=== PATIENT | male | born 1950 | race Caucasian/White ===

== ENCOUNTER 2017-12-28 14:08 | Emergency (ER) | payer MEDICARE, OTHER ==
[~2017-12-28] VITALS: Ht 188 cm; Wt 101.6 kg
[~2017-12-28 14:08] MED LIST: CIPRO500 MG PO; FLAGYL500 MG PO; FLOMAX0.4 MG PO; HYDROCHLOROTHIA25 M2 PO; PROTONIX 20 MG20 M1 PO
[2017-12-28] MEDS ORDERED: COZAAR 25 MG TA25 M1 PO (14:21)
[2017-12-28] MEDS ORDERED: ERYTHROMYCIN E3.5 G3 OPHTHALMIC (14:39)
[2017-12-28 14:43] VITALS: BP 160/82
== END 2017-12-28 14:44 | disposition home or self-care (01) ==
LOC: M.ERS 14:08
DX: H01.005 Unspecified blepharitis left lower eyelid (principal); I10 Essential (primary) hypertension; N40.0 Benign prostatic hyperplasia without lower urinary tract symptoms

== ENCOUNTER 2018-03-05 15:39 | Inpatient (IN) | payer MEDICARE, OTHER ==
[~2018-03-05] VITALS: Ht 188 cm; Wt 101.6 kg
[~2018-03-05 15:39] MED LIST changes: +COZAAR 25 MG TA25 M1 PO; +ERYTHROMYCIN E3.5 G3 OPHTHALMIC
[2018-03-05 15:49] VITALS: BP 135/85
[2018-03-05] MEDS ORDERED: HYZAAR 100-12.1 EACH PO (15:57)
[2018-03-05 16:13] LABS: ABSOLUTE LYMPHOCYTES 0.9 thou/uL (0.8-5.3); ABSOLUTE MONOCYTES 0.6 thou/uL (0.0-1.2); ABSOLUTE NEUTROPHILS 3.2 thou/uL (1.6-8.1); BASOPHILS 0.7 %; EOSINOPHILS 0.2 %; HEMATOCRIT 46.3 % (42.0-52.0); HEMOGLOBIN 16.4 gm/dL (14.0-18.0); LYMPHOCYTES 19.2 %; MCH 29.7 pg (26.0-34.0); MCHC 35.3 g/dL (28.0-37.0); MCV 84.2 fL (80.0-100.0); MONOCYTES 13.2 %; MPV 7.2 fl. (7.2-11.1); NUCLEATED RBCS 0 /100WBC; PLATELET COUNT* 123 thou/uL (150-400); POLYS 66.7 %; WBC 4.8 thou/uL (4.0-11.0)
[2018-03-05 16:23] LABS: ANION GAP 7 mmol/L (7-16); BUN 23 mg/dL (7-18); CALCIUM 9.4 mg/dL (8.5-10.1); CHLORIDE 100 mmol/L (98-107); CO2 29 mmol/L (21-32); CREATININE 1.2 mg/dL (0.6-1.3); GLUCOSE 114 mg/dL (70-99); POTASSIUM 4.1 mmol/L (3.5-5.1); SODIUM 136 mmol/L (136-145)
[2018-03-05 16:34] LABS: ALBUMIN 3.6 g/dL (3.4-5.0); ALKALINE PHOSPHATASE 111 U/L (46-116); NT-PRO BRAIN NAT PEPTIDE 238 pg/mL (<300); SGOT 45 U/L (15-37); SGPT 49 U/L (30-65); TOTAL BILIRUBIN 1.4 mg/dL (<0.1-1.0); TOTAL PROTEIN 7.5 g/dL (6.4-8.2); TROPONIN-I LEVEL <0.06 ng/mL (<0.06)
[2018-03-05 16:57] LABS: INFLUENZA A ANTIGEN None Detected (None Detect); INFLUENZA B ANTIGEN None Detected (None Detect)
[2018-03-05 17:58] LABS: URINE BILIRUBIN NEGATIVE (Negative); URINE BLOOD TRACE (Negative); URINE CLARITY CLEAR; URINE COLOR YELLOW; URINE GLUCOSE-RANDOM NEGATIVE (Negative); URINE KETONES NEGATIVE (Negative); URINE LEUKOCYTES-REFLEX NEGATIVE (Negative); URINE NITRITE-REFLEX NEGATIVE (Negative); URINE PROTEIN TRACE (Negative); URINE SPECIFIC GRAVITY 1.025 (1.005-1.030); URINE UROBILINOGEN 0.2 E.U./dl (0.2-1.0)
[2018-03-05 17:59] LABS: CRYSTALS None Seen /LPF (None Seen)
[2018-03-05 20:56] VITALS: BP 107/80
[2018-03-05] MEDS ORDERED: HYDROCHLOROTHIA25 M2 PO (22:49)
[2018-03-05 23:53] VITALS: BP 123/77
--- NOTE | 2018-03-06 05:58 | NUR ---
PT ABLE TO SLEEP AFTER ADMISSION COMPLETE. FLUIDS INFUSING PER DR ORDER. PT UP AD SERGIO TO BATHROOM. PT IS ON ROOM AIR. VITALS WNL. PT DENIES PAIN/NAUSEA AT THIS TIME. FREQUENTLY USED ITEMS AND CALL LIGHT WITHIN REACH. SIDERAILS UPX2. WILL CONTINUE TO MONITOR.
[2018-03-06] MEDS ORDERED: ADVIL PM CAPLE1 EACH PO (06:08)
[2018-03-06 08:20] VITALS: BP 126/83
--- NOTE | 2018-03-06 10:49 | NUR ---
Pt is A&O. Resides at home with his . Normally active and independent, Pt and spend huitron in [place]. No DME. No hx of HH or SNF. Goal is to [place] at [place], no needs anticipated. Following.
--- NOTE | 2018-03-06 14:44 | NUR ---
PATIENT IS ALERT AND ORIENTED TODAY VERY PLEASANT. UP AD SERGIO IN ROOM. VITAL SIGNS STABLE ON ROOM AIR. NO COMPLAINTS OF ANY PAIN AT THIS TIME. CALL LIGHT IS IN REACH, WILL CONTINUE TO MONITOR.
--- NOTE | 2018-03-06 18:35 | NUR ---
ASSUMED CARE OF PATIENT AT 1500, REPORT RECEIVED FROM BRIANDA MELÉNDEZ. PATIENT RESTING IN BED. PATIENT REQUESTED NON-DROWSY ANTIHISTAMINE, ORDERS RECEIVED AND MEDICATION GIVEN. PATIENT DENIES ANY PAIN. PATIENT IS UP AD SERGIO IN ROOM. SHOWER TAKEN THIS EVENING. PATIENT DENIES ANY NEEDS AT THIS TIME. FAMILY AT BEDSIDE. WILL CONTINUE TO MONITOR.
[2018-03-07] VITALS: BP 136/86
[2018-03-07 05:00] LABS: ABSOLUTE EOSINOPHILS 0.1 thou/uL (0.0-0.7); ABSOLUTE LYMPHOCYTES 2.2 thou/uL (0.8-5.3); ABSOLUTE MONOCYTES 0.9 thou/uL (0.0-1.2); BASOPHILS 0.6 %; EOSINOPHILS 1.9 %; HEMATOCRIT 39.7 % (42.0-52.0); MCH 29.9 pg (26.0-34.0); MCHC 35.6 g/dL (28.0-37.0); MCV 83.9 fL (80.0-100.0); MONOCYTES 13.9 %; MPV 7.5 fl. (7.2-11.1); NUCLEATED RBCS 0 /100WBC; PLATELET COUNT* 115 thou/uL (150-400); POLYS 47.6 %; RBC 4.73 mil/uL (4.50-6.00); RDW-CV 14.3 % (10.5-14.5); WBC 6.2 thou/uL (4.0-11.0)
[2018-03-07 05:11] LABS: CALCIUM 8.5 mg/dL (8.5-10.1); CREATININE 1.1 mg/dL (0.6-1.3); POTASSIUM 3.9 mmol/L (3.5-5.1)
[2018-03-07 05:12] LABS: HEMOGLOBIN 14.1 gm/dL (14.0-18.0)
[2018-03-07 08:00] VITALS: BP 115/82
--- NOTE | 2018-03-07 11:21 | NUR ---
ASSUMED PT CARE AT 0700 PT IS ALERT AND ORIENTED X 4 PT DENIES PAIN OR SOA, PT IS UP AD SERGIO PT IS NOT A FALL RISK, PT IV REMOVED PRIOR SHIFT PT DOES NOT WANT ANOTHER IV REFUSED IV ANTIBIOTICS STATES THEY BURN, VSS, WILL CONTINUE TO MONITOR
[2018-03-07 15:59] VITALS: BP 117/84
--- NOTE | 2018-03-07 16:34 | NUR ---
ASSUMED CARE OF PATIENT FROM MEDHAT PARKINSON AT 1200. PATIENT SITTING UP IN CHAIR MOST OF SHIFT. AFREBILE, NO COMPLAINTS OF PAIN. REMAINS WITH NO IV ACCESS. PATIENT DOWN FOR CT OF CHEST THIS EVENING, WILL CALL RESULTS TO DR. PEGUERO FOR ABX ORDERS. ID CONSULTED, WILL SEE IN AM.
[2018-03-07 18:00] VITALS: BP 136/85
--- NOTE | 2018-03-07 18:12 | NUR ---
PATIENT HAD CT OF CHEST DONE THIS EVENING, DR. PEGUERO AWARE OF RESULTS AND ORDERS FOR PATIENT TO MOVE TO TELEMETRY UNIT AND CONS CARDIOLOGY. CONS PLACED AND WILL SEE IN AM. IV RESRARTED TO RIGHT FOREARM. PATIENT TRANSFERRED TO ROOM 224. REPORT CALLED TO MEDHAT PARKINSON.
[2018-03-07 20:00] VITALS: BP 140/85
[2018-03-08] VITALS: BP 118/79
[2018-03-08 04:00] VITALS: BP 111/76
--- NOTE | 2018-03-08 05:14 | NUR ---
PATIENT REMAINED NPO AFTER MIDNIGHT PENDING CARDIO CONSULT PRN ORDERS OBTAINED DOCUMENTED FOR ANXIETY ET INSOMNIA T.O DR PEGUERO SR ON THE MONITOR UP AD SERGIO ON RA WILL REPORT TO ONCOMING RN
[2018-03-08 08:30] VITALS: BP 113/75
[2018-03-08 12:00] VITALS: BP 114/70
[2018-03-08 13:46] LABS: ABSOLUTE EOSINOPHILS 0.1 thou/uL (0.0-0.7); ABSOLUTE LYMPHOCYTES 1.4 thou/uL (0.8-5.3); ABSOLUTE MONOCYTES 0.4 thou/uL (0.0-1.2); ABSOLUTE NEUTROPHILS 4.1 thou/uL (1.6-8.1); BASOPHILS 0.7 %; HEMATOCRIT 41.9 % (42.0-52.0); HEMOGLOBIN 14.7 gm/dL (14.0-18.0); LYMPHOCYTES 23.2 %; MCH 29.6 pg (26.0-34.0); MCHC 35.2 g/dL (28.0-37.0); MCV 84.1 fL (80.0-100.0); MONOCYTES 6.5 %; NUCLEATED RBCS 0 /100WBC; PLATELET COUNT* 145 thou/uL (150-400); POLYS 68.6 %; RBC 4.99 mil/uL (4.50-6.00)
[2018-03-08 14:09] LABS: ALBUMIN 3.5 g/dL (3.4-5.0); CALCIUM 9.2 mg/dL (8.5-10.1); CREATININE 1.2 mg/dL (0.6-1.3); POTASSIUM 3.7 mmol/L (3.5-5.1); TOTAL BILIRUBIN 1.1 mg/dL (<0.1-1.0); TOTAL PROTEIN 7.1 g/dL (6.4-8.2)
[2018-03-08 16:00] VITALS: BP 112/68
--- NOTE | 2018-03-08 16:18 | CON ---
[address] [address] CONSULTATION Name: ETHANLUCERO LINCOLN Room: [address] ADM IN .R.#: [id number] Admission: 03/05/18 Attend Phys: Joaquim Arzate Discharge: Date of : 46 Report #: [id number] THIS REPORT FOR: //name// CC: Ras Ndiaye DATE OF SERVICE: 03/08/2018 CARDIOLOGY CONSULTATION HISTORY OF PRESENT ILLNESS: The patient is a 67-year-old white male who I was asked to see in the hospital today after he had evidence of an aneurysm of the thoracic aorta. The history is obtained from the patient. There are some old records available. The patient denies a history of heart disease. He was actually here in 2016 with abdominal pain. He is felt to be constipated. 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 He has had no previous cardiac evaluation. Recently, he has been having intermittent fever and chills. He had some sinus drainage. He had been taking decongestants, but was not getting any better. His fever had been as high as almost 102. He denies any significant cough, diarrhea, burning when he peed. He was finally brought by family members to the Emergency Room 4 days ago and admitted by the hospitalists. His initial diagnosis was fever, unknown origin. He was initially admitted to a non-monitored bed. Yesterday, he underwent a CT scan of the chest without contrast. There is some atelectasis and emphysematous changes of the lungs. The thoracic aorta was dilated, ascending aorta measured up to 5.2 cm in diameter with minimal calcification, descending thoracic aorta measured up to 4.5 cm. He has fatty liver. Because of thoracic aneurysm, Cardiology consultation was requested. He denies a history of chest pain, back pain. He has had no previous cardiac evaluation. He has had no significant shortness of breath, palpitations, syncope, edema. He has noticed some fatigue recently. He has chronic low back pain. PAST MEDICAL HISTORY: Significant for surgery for bladder cancer. He has had a tonsillectomy, right hand surgery, hypertension. CURRENT MEDICATIONS AT HOME: Consists of Flomax and Hyzaar. ALLERGIES: He has no known drug allergies. FAMILY HISTORY: Negative for heart disease. SOCIAL HISTORY: He is . He lives in [place], [place]. 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 [place] [address] CONSULTATION Name: ETHANLUCERO LINCOLN Room: [address] IN [facility]#: [id number] Admission: 03/05/18 Attend Phys: Joaquim Arzate Discharge: Date of : 46 Report #: [id number] REVIEW OF SYSTEMS: He has had no history of stroke, asthma, peptic ulcer disease, , psychiatric illness. PHYSICAL EXAMINATION: GENERAL: Revealed an elderly male, lying in bed. He appeared in no distress. VITAL SIGNS: He had a blood pressure of 130/80, pulse is 80, he was initially 101.4 temperature, he is now afebrile. HEENT: He was anicteric. Conjunctivae pink. Mucous membranes moist. NECK: Veins do not appear distended. No carotid bruits. CHEST: Clear to auscultation. CARDIOVASCULAR: Regular rate and rhythm without murmur or rub. ABDOMEN: Soft, nontender. EXTREMITIES: He had no edema. Posterior tibial pulse 2+ bilaterally. SKIN: Warm, dry. NEUROLOGIC: Nonfocal. LYMPH: No adenopathy. MUSCULOSKELETAL: No joint effusions. IMAGING: He does not appear to have had an ECG. Workup so far, he had a chest x-ray on admission that showed some atelectasis. LABORATORY DATA: Sodium 140, creatinine 1.1, SGOT 45, bilirubin 1.4, SGPT 49. His albumin is 3.6. BNP 238. White blood cell count 6.2, hemoglobin 14.1. IMPRESSION AND RECOMMENDATIONS: 1. Fever. Cause unclear. No evidence of endocarditis. Possible sinusitis. 2. Hypertension. The patient has been on an ARB and diuretic. 3. History of bladder cancer. 4. Chronic back pain. 5. Aneurysm of the thoracic aorta. Appears to be asymptomatic. I will recommend routine followup. I would not recommend consideration of stent grafting unless the aneurysm was greater than 5.5 cm. At this time, I would recommend blood pressure control only. <ELECTRONICALLY SIGNED> By: Ras Nicholas MD, [facility] 03/08/18 1618 1003 1323Dlouis Nicholas MD, FAC /nt
--- NOTE | 2018-03-08 18:29 | NUR ---
ASSUMED PT CARE AT 0700 PT IS ALERT AND ORIENTED X 4 PT DENIES PAIN OR SOA ON RA, PT IS UP AD SERGIO PT IS NOT A FALL RISK, PT IS SR ON THE MONITOR, CARDIOLOGY SAW PT ORDERED ECHO FOR TOMORROW, PT WAS GIVEN ANTIBIOTICS IN IV AND THEN SWITCHED TO PO ANTIBIOTICS, PT VSS, WILL CONTINUE TO MONITOR
[2018-03-08 20:22] VITALS: BP 109/54
[2018-03-09 00:49] VITALS: BP 116/74
[2018-03-09 04:22] VITALS: BP 122/70
--- NOTE | 2018-03-09 06:49 | NUR ---
Pt talkative, up ad nicholas. C/O stomach cramps at beginning of shift. Assisted OOOB per pt request so he could stand up straight and "stretch it out." VSS. C/O multiple needle sticks due to lab and IV antibiotics. States his physicians told him his doxycycline would be changed from IV to po yesterday, but IV order still in place. Pt reports he had BM last night before bed. Will continue to monitor.
[2018-03-09 07:47] LABS: CHOLESTEROL 183 mg/dL (<200); HDL CHOLESTEROL 27 mg/dL (>40); LDL CHOLESTEROL 122 mg/dL (<100); TC:HDL 6.8 Ratio (Not establshd); TRIGLYCERIDE 174 mg/dL (<150); VLDL 35 mg/dL (<40)
[2018-03-09 07:48] LABS: SERUM ASSESSMENT Clear
--- NOTE | 2018-03-09 08:00 | NUR ---
ASSUMED PT. CARE AND RECEIVED REPORT AT 0730. PT. A/OX4, VSS, MONITOR ON TRACING SR. PT ON RA @ 95%. FULL ASSESSMENT COMPLETED, REFER TO CHARTING. PT. STATING FRUSTRATION WITH HAVING TO CONTINUE IV ANTIBIOTICS, STATES TOLD HIM YESTERDAY HE COULD SWITCH TO ORAL. PT. FURTHER STATES FRUSTRATION WITH REMAINING AND CONTINUEING TESTING. DISCUSSED PLAN OF CARE WITH PT, VERBALIZED UNDERSTANDING. DR. BURROUGHS ON FLOOR AND DISCUSSED CHANGE IN ANTIBIOTICS, WILL ASSESS. WILL CONTINUE WITH PLAN OF CARE.
[2018-03-09 08:30] VITALS: BP 103/64
--- NOTE | 2018-03-09 11:45 | EKG ---
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 Insoles: : 1950 Requested By: Ras Nicholas Order Number: [id number] Angelia MD: Dami Aviles Measurements Intervals [place] Rate: 77 P: 5 SC: 172 QRS: -35 QRSD: 95 T: 10 QT: 404 QTc: 458 Interpretive Statements Sinus rhythm Left axis deviation Low voltage, precordial leads Compared to ECG 01/13/2016 09:58:35 Low QRS voltage now present Prolonged QT interval no longer present Electronically Signed On 03-09-2018 11:44:57 CDT by Dami Aviles [email or web address] <ELECTRONICALLY SIGNED> By: Dami Aviles MD, [facility] 03/09/18 1144 0840 0840 Dami Aviles MD, [facility] /EPI
[2018-03-09 12:00] VITALS: BP 102/66; BP 111/87
[2018-03-09 12:05] LABS: HIV-1/HIV-2 ANTIBODY Non Reactive (Non Reactive)
[2018-03-09] MEDS ORDERED: DOXYCYCLINE 10100 MG PO (14:08)
[2018-03-09 14:10] LABS: HEPATITIS B SURFACE AG Negative (Negative)
[2018-03-09 15:31] VITALS: BP 111/87
--- NOTE | 2018-03-09 15:58 | 2DMMODE ---
[place] [address] 2 D/M-MODE ECHOCARDIOGRAM Name: ETHANLUCERO FREEMAN SPUR Room: [address] ADM IN [facility]#: [id number] Admission: 03/05/18 Attend Phys: Flako Ndiaye Discharge: Date of : 46 Date of Service: 03/09/18 1558 Report #: [id number] THIS REPORT FOR: //name// APPROVED REPORT Study performed: 03/09/2018 13:17:31 EXAM: Comprehensive 2D, Doppler, and color-flow Echocardiogram Patient Location: In-Patient Room #: [facility] Status: routine BSA: 2.28 HR: 93 bpm BP: 122/70 mmHg Rhythm: NSR Other Information Study Quality: Good Indications Abnormal ECG 2D Dimensions LVEF(%): 73.45 (>50%) IVSd: 11.20 (7-11mm) LVOT Diam: 22.33 (18-24mm) LVDd: 51.41 mm PWd: 11.14 (7-11mm) Ascending Ao: 47.99 (22-36mm) LVDs: 29.46 (25-40mm) Aortic Root: 41.98 mm Engle's LVEF: 73.45 % Volumes Left Atrial Volume (Systole) LA ESV Index: 26.60 mL/m2 Aortic Valve AoV Peak Ricki.: 1.39 m/s AO Peak Gr.: 7.77 mmHg LVOT Max P.64 mmHg AO Mean Gr.: 3.57 mmHg LVOT Mean P.66 mmHg LVOT Max V: 1.29 m/s AO V2 VTI: 18.67 cm LVOT Mean V: 0.73 m/s YOKO (VTI): 4.03 cm2 LVOT V1 VTI: 19.20 cm AI [place]: 2.32 m/s2 AI PHT: 583.57 [place] [address] 2 D/M-MODE ECHOCARDIOGRAM Name: LUCERO LONG GORDILLO Room: [address] IN .R.#: [id number] Admission: 03/05/18 Attend Phys: Flako Ndiaye Discharge: Date of : 46 Date of Service: 03/09/18 1558 Report #: [id number] Mitral Valve E/A Ratio: 0.61 MV Decel. Time: 183.45 ms MV E Max Ricki.: 0.47 m/s MV PHT: 53.20 ms MVA (PHT): 4.14 cm2 TDI E/Lateral E': 5.22 E/Medial E': 4.70 Medial E' Ricki.: 0.10 m/s Lateral E' Ricki.: 0.09 m/s Pulmonary Valve PV Peak Ricki.: 1.00 m/s PV Peak Gr.: 4.02 mmHg Tricuspid Valve TR Peak Gr.: 17.15 mmHg RVSP: 22.00 mmHg Left Ventricle The left ventricle is normal size. There is normal LV segmental wall motion. There is normal left ventricular wall thickness. Left ventricular systolic function is normal. The left ventricular ejection fraction is within the normal range. LVEF is 65%. Grade I - abnormal relaxation pattern. Right Ventricle The right ventricle is normal size. The right ventricular systolic function is normal. Atria The left atrium size is normal. The right atrium size is normal. Aortic Valve Mild aortic valve sclerosis. Mild aortic regurgitation. There is no aortic valvular stenosis. Mitral Valve The mitral valve is normal in structure. There is no mitral valve regurgitation noted. No evidence of mitral valve stenosis. Tricuspid Valve The tricuspid valve is normal in structure. Trace tricuspid regurgitation. The RVSP is ____22___ [place] [address] 2 D/M-MODE ECHOCARDIOGRAM Name: LUCERO LONG FREEMAN SPUR Room: [address] IN [facility].#: [id number] Admission: 03/05/18 Attend Phys: Flako Ndiaye Discharge: Date of : 46 Date of Service: 03/09/18 1558 Report #: [id number] The pulmonary valve is normal in structure. Mild pulmonic regurgitation. Great Vessels The aortic root is normal in size. IVC is normal in size and collapses with >50% inspiration Pericardium There is no pericardial effusion. <Conclusion> The left ventricle is normal size. There is normal left ventricular wall thickness. Left ventricular systolic function is normal. The left ventricular ejection fraction is within the normal range. LVEF is 65%. Grade I - abnormal relaxation pattern. The right ventricle is normal size. The left atrium size is normal. Mild aortic valve sclerosis. Mild aortic regurgitation. There is no aortic valvular stenosis. The mitral valve is normal in structure. The tricuspid valve is normal in structure. Trace tricuspid regurgitation. The RVSP is ____22___ mmHg. The aortic root is normal in size. IVC is normal in size and collapses with >50% inspiration There is no pericardial effusion. There is normal LV segmental wall motion. <ELECTRONICALLY SIGNED> By: Dami Aviles MD, FACC 03/09/18 1558 1558 1558 Dami Aviles MD, FACC /INF
--- NOTE | 2018-03-09 17:08 | NUR ---
DC ORDERS RECEIVED. IV AND MONITOR REMOVED. PT. OKAYED TO DC BY ALL CONSULTS WITH FOLLOW UPS RECOMMENDED. PT. GIVEN DC INSTRUCTIONS, SCRIPTS, AND CARENOTES. PT. LEFT WITH FRIEND TO RETURN HOME IN PERSONAL VEHICLE, ALL BELONGINGS ACCOUNTED FOR. HOME MEDS RETRIEVED FROM PHARMACY
[2018-03-10 07:09] LABS: CMV IgM Abs <30.0 AU/mL (0.0-29.9); EBNA-1 IgG >600.0 U/mL (0.0-17.9); EBV VCA IgM <36.0 U/mL (0.0-35.9)
[2018-03-11 11:12] LABS: B.burgdorf.IgG Negative (()); B.burgdorf.IgM Negative (())
[2018-03-11 14:09] LABS: F. TULARENSIS IGG Negative (()); F. TULARENSIS IGM Negative (())
--- NOTE | 2018-03-15 15:18 | CON ---
[address] [address] CONSULTATION Name: LUCERO LONG RIPPLEMEAD Room: [address] IN M.R.#: [id number] Admission: 03/05/18 Attend Phys: Joaquim Arzate Discharge: 03/09/18 Date of : 46 Report #: [id number] THIS REPORT FOR: //name// CC: Ras Ndiaye DICTATED BY: Aditi PARSONS DATE OF SERVICE: 03/09/2018 REASON FOR CONSULTATION: Ascending thoracic aortic aneurysm. HISTORY OF PRESENT ILLNESS: The patient is a 67-year-old male who originally presented to the Emergency Department with complaints of a febrile illness. He reports last Friday he spiked a 101.8 fever, had some chills, but no other specific complaints. He reports he continued to have a fever that would come down some, but then spike back up, therefore presented to the Emergency Department for further evaluation and treatment. He has been followed by Infectious Disease, and has undergone a full workup, no clear etiology for his fevers has been identified. A CT of the chest was obtained, which demonstrated a 5.2 ascending aortic aneurysm. We have been asked to evaluate the patient, give our opinion regarding these findings. He has no previous knowledge of having an aneurysm. He continues to complain of some sinus drainage as well as a frequent cough. Denies any nausea, vomiting, fevers or chills currently. He denies any chest pain or shortness of breath. PAST MEDICAL HISTORY: 1. Bladder cancer. 2. Hypertension. 3. Benign prostatic hypertrophy. PAST SURGICAL HISTORY: BCG bladder instillations. ALLERGIES: No known drug allergies. HOME MEDICATIONS: 1. Flomax 0.4 mg daily. 2. Advil PM 1 tablet at bedtime. 3. Hydrochlorothiazide 25 mg daily. SOCIAL HISTORY: He is a nonsmoker. Denies any illicit drug use or alcohol use. REVIEW OF SYSTEMS: A 12-point review of systems has been reviewed and is negative except for the above-mentioned in the history of present illness. PHYSICAL EXAMINATION: [place] [address] CONSULTATION Name: LUCERO LONG GORDILLO Room: [address]#: [id number] Admission: 03/05/18 Attend Phys: Joaquim Arzate Discharge: 03/09/18 Date of : 46 Report #: [id number] VITAL SIGNS: Temperature 36.7, heart rate is 100, respiratory rate is 19, blood pressure 111/87, oxygen saturation is 95% on room air. GENERAL: He is alert, oriented, in no acute distress. HEENT: Head is normocephalic, atraumatic. NECK: Supple, without jugular venous distention or carotid bruit. HEART: Tachycardia, no murmur noted. CHEST: Lungs are clear to auscultation bilaterally. ABDOMEN: Soft, nontender, positive bowel sounds. EXTREMITIES: Palpable bilateral radial, femoral and pedal pulses. He has prominent varicosities on bilateral lower extremities, left greater than the right. There are spider telangiectasias in the right medial thigh. NEUROLOGIC: He is alert and oriented with no focal neurologic deficit. LABORATORY DATA: Hemoglobin 14.7, hematocrit 41.9, white blood cell count 6.0, platelets 145. Sodium 139, potassium 3.7, chloride 102, CO2 of 29, BUN 23, creatinine 1.2, glucose is 130. ASSESSMENT AND PLAN: 1. Thoracic aortic aneurysm, ascending. Recommend echocardiogram prior to discharge as well as continued followup with Cardiology as an outpatient. No surgical intervention is indicated from a Vascular Surgery standpoint. He is okay to discharge to home from our standpoint. 2. Venous insufficiency with varicose veins and spider telangiectasias. The patient does complain of leg aching as well as nocturnal cramping. He has tried compression stockings in the past. We will contact him to arrange an outpatient workup for venous insufficiency with possible venous ablation. 3. Hypertension. We thank you for the opportunity to participate in the care of the patient. Please feel free to contact our office with any questions or concerns. <ELECTRONICALLY SIGNED> By: Ezequiel Ball DO 03/15/18 1518 1439 2037Caesar Mcdonald MD /darian
== END 2018-03-09 17:10 | disposition home or self-care (01) | DRG 871 ==
LOC: M.ERS 15:39 → M.TBA-ER 18:01 → M.3W 18:01 → M.2W 18:01 → M.3W 23:52 → M.2W 03-07 18:10
PROVIDERS: Internal Medicine; Internal Medicine Cardiovascular Disease; Nurse Practitioner; Specialist; ADMIT Internal Medicine
DX: A41.9 Sepsis, unspecified organism (principal); J15.6 Pneumonia due to other Gram-negative bacteria; I10 Essential (primary) hypertension; N40.0 Benign prostatic hyperplasia without lower urinary tract symptoms; G89.29 Other chronic pain; M54.9 Dorsalgia, unspecified; I71.2 Thoracic aortic aneurysm, without rupture; I78.1 Nevus, non-neoplastic; I87.2 Venous insufficiency (chronic) (peripheral); E86.0 Dehydration; J32.9 Chronic sinusitis, unspecified; Z85.51 Personal history of malignant neoplasm of bladder; Z79.899 Other long term (current) drug therapy

== ENCOUNTER → 2019-04-27 | Outpatient (CLI) | payer MEDICARE, OTHER ==
[~2019-04-27] MED LIST changes: +ADVIL PM CAPLE1 EACH PO; +DOXYCYCLINE 10100 MG PO; +HYZAAR 100-12.1 EACH PO
[2019-04-27 13:24] LABS: CREATININE 0.9 mg/dL (0.6-1.3)
== END ==
LOC: M.LAB 08:00
PROVIDERS: Internal Medicine Cardiovascular Disease
DX: I71.2 Thoracic aortic aneurysm, without rupture (principal); J98.11 Atelectasis; J84.10 Pulmonary fibrosis, unspecified

== ENCOUNTER → 2019-10-04 | Outpatient (CLI) | payer MEDICARE, OTHER | LOC: M.LAB 10:00 → M.CT 11:00 | PROVIDERS: Internal Medicine | DX: G45.9 Transient cerebral ischemic attack, unspecified (principal); G31.9 Degenerative disease of nervous system, unspecified; I10 Essential (primary) hypertension; E78.49 Other hyperlipidemia; I72.9 Aneurysm of unspecified site; M48.02 Spinal stenosis, cervical region; M25.78 Osteophyte, vertebrae ==

== ENCOUNTER → 2020-04-14 | Outpatient (CLI) | payer MEDICARE, OTHER | LOC: M.LAB 04-11 15:09 | PROVIDERS: ATTEND Internal Medicine Cardiovascular Disease | DX: I71.2 Thoracic aortic aneurysm, without rupture (principal); J43.9 Emphysema, unspecified; J98.4 Other disorders of lung ==